=== PATIENT | male | born 1950 | race Caucasian/White ===

== ENCOUNTER → 2024-07-25 07:52 | Outpatient (REF) | payer MEDICARE, SELFPAY | LOC: HWRAD 07:52 | PROVIDERS: ATTENDING PHYSICIAN Internal Medicine Cardiovascular Disease; FAMILY PHYSICIAN Student in an Organized Health Care Education/Training Program | DX: R94.39 Abnormal result of other cardiovascular function study (principal); R09.89 Other specified symptoms and signs involving the circulatory and respiratory systems | CPT/HCPCS: 76770; 93306 ==

== ENCOUNTER → 2024-08-03 13:32 | Outpatient (REF) | payer MEDICARE, SELFPAY | LOC: RAD 13:32 | PROVIDERS: ATTENDING PHYSICIAN Surgery Vascular Surgery; FAMILY PHYSICIAN Student in an Organized Health Care Education/Training Program | DX: I71.43 Infrarenal abdominal aortic aneurysm, without rupture (principal) | CPT/HCPCS: 74174; Q9967 ==

== ENCOUNTER → 2025-02-01 12:40 | Outpatient (REF) | payer MEDICARE, SELFPAY | LOC: HWRAD 12:40 | PROVIDERS: ATTENDING PHYSICIAN Surgery Vascular Surgery; FAMILY PHYSICIAN Student in an Organized Health Care Education/Training Program | DX: I71.43 Infrarenal abdominal aortic aneurysm, without rupture (principal) | CPT/HCPCS: 74176 ==